=== PATIENT | female | born 1975 | race Caucasian/White ===

== ENCOUNTER 2017-06-05 15:39 | Emergency (ER) | payer MEDICAID ==
[~2017-06-05] VITALS: Ht 165.1 cm; Wt 92.0 kg
[2017-06-05 18:10] LABS: CLARITY URINE CLEAR (CLEAR); COLOR URINE YELLOW (YELLOW); GLUCOSE URINE 3+ (NEGATIVE); KETONES URINE TRACE (NEGATIVE); LEUKOCYTE ESTERASE URINE NEGATIVE (NEGATIVE); NITRITE URINE NEGATIVE (NEGATIVE); OCCULT BLOOD URINE NEGATIVE (NEGATIVE); PH URINE 5.5 (4.5-8.0); PROTEIN URINE NEGATIVE (NEGATIVE); SPECIFIC GRAVITY URINE 1.042 (1.005-1.030); UROBILINOGEN URINE 0.2 E.U./dL (0.2-1.0)
[2017-06-05] MEDS ORDERED: KETOROLAC 60MG/2ML VIAL IM ONE (19:30)
[2017-06-05 19:57] VITALS: BP 136/75
== END 2017-06-05 20:00 | disposition home or self-care (01) ==
LOC: ER 15:48
DX: M54.5 Low back pain (principal); Z90.49 Acquired absence of other specified parts of digestive tract
CPT/HCPCS: 81001; 81025; 96372; 99283; J1885